=== PATIENT | male | born 1960 | race Caucasian/White ===

== ENCOUNTER 2025-02-03 17:17 | Inpatient (IN) | payer OTHER ==
[~2025-02-03] VITALS: Ht 162.6 cm; Wt 56.5 kg
[~2025-02-03 17:17] MED LIST: CITA20 PO; DEXAMETHASONE
[2025-02-03 18:15] LABS: BASOPHILS ABSOLUTE AUTO 0.06 K/mm3 (0.00-0.23); BASOPHILS PERCENT AUTO 0 % (0-2); EOSINOPHILS ABSOLUTE AUTO 0.01 K/mm3 (0.00-0.68); EOSINOPHILS PERCENT AUTO 0 % (0-6); Hematocrit 45.3 % (37.0-53.0); Hemoglobin 15.6 g/dL (13.5-17.5); IMMATURE GRAN ABSOLUTE AUTO 0.08 K/mm3 (0.00-0.10); IMMATURE GRAN PERCENT AUTO 0 % (0-1); LYMPHOCYTES ABSOLUTE AUTO 1.87 K/mm3 (0.84-5.20); LYMPHOCYTES PERCENT AUTO 9 % (21-46); MONOCYTES ABSOLUTE AUTO 1.29 K/mm3 (0.16-1.47); MONOCYTES PERCENT AUTO 6 % (4-13); Mean Corpuscular HGB 30.8 pg (26.0-34.0); Mean Corpuscular HGB Conc 34.4 g/dL (31.5-36.5); Mean Corpuscular Volume 89 fL (80-100); Mean Platelet Volume 8.9 fL (9.1-12.4); NEUTROPHILS ABSOLUTE AUTO 17.14 K/mm3 (1.96-9.15); NEUTROPHILS PERCENT AUTO 84 % (41-73); Platelet Count 447 K/mm3 (150-400); RDW Coefficient Variation 13.3 % (11.7-14.2); RDW Standard Deviation 43.8 fL (35.1-46.3); Red Blood Cell Count 5.07 M/mm3 (4.30-5.90); White Blood Cell Count 20.45 K/mm3 (4.00-11.30)
[2025-02-03 18:26] LABS: Albumin, Blood 2.8 g/dL (3.4-5.0); Albumin/Globulin Ratio 0.6 (0.8-1.8); Bilirubin, Total 0.7 mg/dL (0.1-1.0); Bun/Creatinine Ratio 19.8 (12.0-20.0); Calcium, Blood 8.7 mg/dL (8.5-10.1); Creatinine, Blood 0.96 mg/dL (0.60-1.20); Globulin, Blood 4.4 g/dL (2.2-4.0); Total Protein, Blood 7.2 g/dL (6.4-8.2)
[2025-02-03] MEDS ORDERED: CefTRIAXone Sodium 1,000 MG in NS 100 ML IV ONE (20:50)
[2025-02-03] MEDS ORDERED: Azithromycin 250 MG Tab PO ONE (20:50)
[2025-02-03] MEDS ORDERED: NS 1,000 ML IV SCH (21:25)
[2025-02-03] MEDS ORDERED: Ondansetron HCl 2 MG / ML 2ML Vial IV PRN (21:25)
[2025-02-03] MEDS ORDERED: FLU VACC TS2024-25(6MOS UP)/PF 45 MCG/0.5 ML SYRINGE IM ONE (21:25)
[2025-02-03] MEDS ORDERED: EZET10 PO (21:44)
[2025-02-03] MEDS ORDERED: LISI5 PO (21:45)
[2025-02-03] MEDS ORDERED: NS 1,000 ML IV ONE (22:00)
[2025-02-03 23:49] VITALS: BP 122/92
[2025-02-04 01:50] LABS: Streptococcus pneumoniae DNA Detected Bin 10^6 copy/mL (NOT DETECT)
[2025-02-04 01:51] LABS: Acinetobacter baumannii DNA Not Detected copy/mL (NOT DETECT); Adenovirus DNA Not Detected (NOT DETECT); Chlamydia pneumonia Not Detected (NOT DETECT); Enterobacter cloacae DNA Not Detected copy/mL (NOT DETECT); Escherichia coli DNA Not Detected copy/mL (NOT DETECT); Haemophilus influenzae DNA Not Detected copy/mL (NOT DETECT); Human Coronavirus RNA Not Detected (NOT DETECT); Human Metapneumovirus RNA Not Detected (NOT DETECT); Influenza virus A RNA Detected (NOT DETECT); Influenza virus B RNA Not Detected (NOT DETECT); Klebsiella aerogenes DNA Not Detected copy/mL (NOT DETECT); Klebsiella oxytoca DNA Not Detected copy/mL (NOT DETECT); Klebsiella pneumoniae DNA Not Detected copy/mL (NOT DETECT); Legionella pneumophila Not Detected (NOT DETECT); Moraxella catarrhalis DNA Not Detected copy/mL (NOT DETECT); Mycoplasma pneumoniae Not Detected (NOT DETECT); Parainfluenza virus RNA Not Detected (NOT DETECT); Proteus sp DNA Not Detected copy/mL (NOT DETECT); Pseudomonas aeruginosa DNA Not Detected copy/mL (NOT DETECT); Respiratory syncytial Vir RNA Not Detected (NOT DETECT); Rhinovirus+Enterovirus RNA Not Detected (NOT DETECT); Serratia marcescens DNA Not Detected copy/mL (NOT DETECT); Staphylococcus aureus DNA Not Detected copy/mL (NOT DETECT); Streptococcus agalactiae DNA Not Detected copy/mL (NOT DETECT); Streptococcus pyogenes DNA Not Detected copy/mL (NOT DETECT)
[2025-02-04 05:26] VITALS: BP 112/77
[2025-02-04 06:09] LABS: BASOPHILS ABSOLUTE AUTO 0.05 K/mm3 (0.00-0.23); BASOPHILS PERCENT AUTO 0 % (0-2); EOSINOPHILS ABSOLUTE AUTO 0.04 K/mm3 (0.00-0.68); EOSINOPHILS PERCENT AUTO 0 % (0-6); Hematocrit 39.3 % (37.0-53.0); Hemoglobin 13.3 g/dL (13.5-17.5); IMMATURE GRAN ABSOLUTE AUTO 0.07 K/mm3 (0.00-0.10); IMMATURE GRAN PERCENT AUTO 1 % (0-1); LYMPHOCYTES ABSOLUTE AUTO 2.18 K/mm3 (0.84-5.20); LYMPHOCYTES PERCENT AUTO 15 % (21-46); MONOCYTES PERCENT AUTO 9 % (4-13); Mean Corpuscular HGB 30.4 pg (26.0-34.0); Mean Corpuscular HGB Conc 33.8 g/dL (31.5-36.5); Mean Corpuscular Volume 90 fL (80-100); Mean Platelet Volume 8.9 fL (9.1-12.4); NEUTROPHILS ABSOLUTE AUTO 10.97 K/mm3 (1.96-9.15); NEUTROPHILS PERCENT AUTO 75 % (41-73); Platelet Count 411 K/mm3 (150-400); RDW Coefficient Variation 13.2 % (11.7-14.2); RDW Standard Deviation 43.9 fL (35.1-46.3); Red Blood Cell Count 4.38 M/mm3 (4.30-5.90); White Blood Cell Count 14.61 K/mm3 (4.00-11.30)
--- NOTE | 2025-02-04 06:38 | NUR ---
SHIFT SUMMARY PT A&OX4 AND ANSWERS QUESTIONS APPROPRIATELY. PT ARRIVED ON UNIT AT 2345 VIA GURNEY AND AMBULATED INDEPENDENTLY YO THE BED. PT ORIENTED TO ROOM AND UNIT. PT RECEIVED BOLUS OF FLUID. PT VSS, NO COMPLAINTS OF CP/PRESSURE. PT ON 4L OF O2 TO MAINTAIN O2 SATS OVER 90%. FALL PRECAUTIONS IN PLACE AND CALL LIGHT IN REACH. REPOSITIONED INDEPENDENTLY
[2025-02-04 07:01] LABS: Bun/Creatinine Ratio 22.7 (12.0-20.0); Calcium, Blood 8.3 mg/dL (8.5-10.1); Creatinine, Blood 0.84 mg/dL (0.60-1.20); Potassium, Blood 4.1 mmol/L (3.5-5.5)
[2025-02-04 08:33] VITALS: BP 123/90
[2025-02-04] MEDS ORDERED: Enoxaparin 40 MG/0.4 ML SYR SC SCH (09:00)
[2025-02-04] MEDS ORDERED: Lactobacil 2-S.Thermo-Bifido 1 1 Cap PO SCH (09:00)
[2025-02-04] MEDS ORDERED: Oseltamivir Phosphate 75 MG Cap PO SCH (14:00)
[2025-02-04 15:41] VITALS: BP 155/91
--- NOTE | 2025-02-04 16:05 | NUR ---
PT IS AOX4 AND COOPERATIVE OF CARE. PT IS INDEPENDENT IN ROOM. PT HAS A COUGH, BUT HASN'T BEEN COUGH MUCH UP. PT CURRENTLY RESTING IN BED WILL CONTINUE TO MONITOR.
[2025-02-04 19:48] VITALS: BP 140/82
[2025-02-04] MEDS ORDERED: CefTRIAXone Sodium 1,000 MG in NS 100 ML IV SCH (21:00)
[2025-02-04] MEDS ORDERED: Azithromycin 500 MG in NS 250 ML IV SCH (21:00)
--- NOTE | 2025-02-05 03:39 | NUR ---
ANTIQUE COLLECTOR SUMMARY: PT A&O X4. MAKES NEEDS KNOWN. INDEPENDENT WITH CARES IN ROOM. SATS MAINTAINED ABOVE 90% ON 4L NC, RA AT BASELINE. NOTED OCCASIONAL PRODUCTIVE COUGH. NO ACUTE DISTRESS / EVENTS. RESTING IN BED, CALL LIGHT IN REACH. BED IN LOWEST POSITION. CARES ONGOING ORDERED.
[2025-02-05 03:50] VITALS: BP 122/81
[2025-02-05 06:32] LABS: Hematocrit 40.1 % (37.0-53.0); Hemoglobin 13.5 g/dL (13.5-17.5); Mean Corpuscular HGB 30.3 pg (26.0-34.0); Mean Corpuscular HGB Conc 33.7 g/dL (31.5-36.5); Mean Corpuscular Volume 90 fL (80-100); Mean Platelet Volume 8.9 fL (9.1-12.4); Platelet Count 404 K/mm3 (150-400); RDW Coefficient Variation 13.3 % (11.7-14.2); RDW Standard Deviation 43.8 fL (35.1-46.3); Red Blood Cell Count 4.46 M/mm3 (4.30-5.90); White Blood Cell Count 12.78 K/mm3 (4.00-11.30)
[2025-02-05 07:06] LABS: Calcium, Blood 8.4 mg/dL (8.5-10.1); Creatinine, Blood 0.74 mg/dL (0.60-1.20); Potassium, Blood 4.2 mmol/L (3.5-5.5)
[2025-02-05 07:50] VITALS: BP 124/84
[2025-02-05] MEDS ORDERED: GuaiFENesin 600 MG TabCR PO SCH (12:00)
[2025-02-05] MEDS ORDERED: Ipratropium/Albuterol SulF 2.5-0.5MG/3 ML Amp INH PRN (12:20)
[2025-02-05 15:40] VITALS: BP 151/93
[2025-02-05 19:15] VITALS: BP 129/84
--- NOTE | 2025-02-05 19:32 | NUR ---
SHIFT SUMMARY PATIENT SATING 90% ON 4 L NC THIS AM WITH CONSTANT COUGH, THICK SPUTUM DIFFICULT TO GET OUT. WHEEZES UPON COUGHING, DR ROMERO NOTIFIED, ORDER FOR MUCINEX NOW AND DAILY, MUCINEX GIVEN WITH GOOD RELIEF. HE STATES HE IS ABLE TO COUGH UP SPUTUM MUCH EASIER NOW. HE DENIES SOB, LUNGS CLEAR. PATIENT UP INDEPENDENT IN ROOM, NOW SATTING 93% ON 3LPM AT REST. BED IN LOW POSITION, CALL LIGHT IN REACH. HE IS ABLE TO MAKE NEEDS KNOWN.
[2025-02-06 03:11] VITALS: BP 127/89
--- NOTE | 2025-02-06 04:06 | NUR ---
SHIFT SUMMARY PATIENT HAD NO ACUTE CHANGES. ALERT, ORIENTED, AND INDEPENDENT. ON 3L O2 NC AND RA BASELINE. DENIES CHEST PAIN AND N/V. VSS/AFEBRILE. PIV INTACT. IV ABXS INFUSED. CALL LIGHT IN REACH. BED IN LOWEST POSITION . WILL CONTINUE TO MONITOR UNTIL DAY SHIFT NURSE ASSUMES CARE.
[2025-02-06 06:03] LABS: Hematocrit 41.2 % (37.0-53.0); Hemoglobin 13.8 g/dL (13.5-17.5); Mean Corpuscular HGB 30.2 pg (26.0-34.0); Mean Corpuscular HGB Conc 33.5 g/dL (31.5-36.5); Mean Corpuscular Volume 90 fL (80-100); Mean Platelet Volume 8.8 fL (9.1-12.4); Platelet Count 411 K/mm3 (150-400); RDW Coefficient Variation 13.3 % (11.7-14.2); RDW Standard Deviation 44.6 fL (35.1-46.3); Red Blood Cell Count 4.57 M/mm3 (4.30-5.90); White Blood Cell Count 10.94 K/mm3 (4.00-11.30)
[2025-02-06 06:21] LABS: Bun/Creatinine Ratio 15.2 (12.0-20.0); Calcium, Blood 8.7 mg/dL (8.5-10.1); Creatinine, Blood 0.79 mg/dL (0.60-1.20); Potassium, Blood 4.2 mmol/L (3.5-5.5)
[2025-02-06 07:58] VITALS: BP 134/95
[2025-02-06] MEDS ORDERED: Benzonatate 100 MG Cap PO STA (10:59)
[2025-02-06] MEDS ORDERED: Benzonatate 100 MG Cap PO PRN (11:00)
[2025-02-06] MEDS ORDERED: Acetaminophen 325 MG TABLET PO PRN (11:05)
[2025-02-06 16:30] VITALS: BP 146/98
--- NOTE | 2025-02-06 16:52 | NUR ---
SHIFT SUMMARY PATIENT UP AD VADIM IN ROOM WITH 3LPM O2 NC. ATTEMPTS TO DROP O2 TO 2LPM AND PATIENT DESATS TO 84-89%, INCREASE TO 3LPM BRINGS HIM TO 90-92%. HE DENIES SHORTNESS OF BREATH AND STATES HE HAS BEEN COUGHING LESS TODAY BUT ABLE TO GET UP SOME SPUTUM TODAY. HE C/O DRYNESS IN NOSTRILS AND HUMIDIFIED O2 WAS SET UP FOR PATIENT. APPETTITE GOOD. BED IN LOW POSITION, CALL LIGHT IN REACH. HE IS ABLE TO MAKE NEEDS KNOWN.
[2025-02-06 20:07] VITALS: BP 147/97
[2025-02-07 05:00] VITALS: BP 138/96
[2025-02-07] MEDS ORDERED: Albuterol 2.5 MG/3 ML VIAL ONE (05:15)
--- NOTE | 2025-02-07 05:58 | NUR ---
SHIFT SUMMARY PT HAS BEEN RESTING IN BED COMFORTABLY OVERNIGHT. PT HAS BEEN AOX4, CALM AND COOPERATIVE. PT WAS ON 3LNC, WITH 4LNC WHEN PT WAS UP TO BATHROOM. PT SATURATING AT REST ABOVE 90%. AT 0530, PT CAME BACK FROM RESTROOM, AND HAD EXPRESSED SOME DIFFICULTY BREATHING. PT WAS GIVEN BREATHING TX, AND RESPIRATORY CARE TURNED O2 TO 7LNC. CURRENTLY PT ON 6LNC, SATURATING AT 93-98%. PT NO LONGER HAVING DIFFICULTY BREATHING. PT HAS BEEN INDEPENDENT AMBULATING IN ROOM, BUT HAS DYSPNEA ON EXERTION. PT HAS HAD NO COMPLAINTS OVERNIGHT. OTHERWISE, PT HAD UNEVENTFUL EVENING.
[2025-02-07 07:12] VITALS: BP 147/97
--- NOTE | 2025-02-07 08:40 | NUR ---
PT ON 4L NC AT THE BEGINNING OF THIS SHIFT, SATS MAINTAINING >92% ON CONT PULSE OX. PT UP TO OPEN BLINDS AND BACK TO BED, O2 DROPPING IN THE LOW 80'S. 02 TITRATED UP TO 10L IN ORDER TO MAINTAIN SATS >90%. DR ROMERO NOTIFIED.
[2025-02-07 10:20] LABS: PCO2 Arterial 44.7 mmHg (35-45); pH Blood Arterial 7.43 (7.35-7.45)
--- NOTE | 2025-02-07 11:30 | NUR ---
PT ON 10L NC, SATS MAINTAINING 100% ON CONT PULSE OX. O2 TITRATED DOWN. PT IS CURRENTLY ON 3L NC, SATS 94-95%, DROPPING THE HIGH 80'S WITH AMBULATION. DR ROMERO NOTIFIED.
[2025-02-07 15:45] VITALS: BP 133/91
--- NOTE | 2025-02-07 17:20 | NUR ---
SHIFT SUMMARY PT IS A/OX4, INDEPENDENT IN THE ROOM. PT ON 4L NC AT THE BEGINNING OF THIS SHIFT. AFTER AMBULATING TO THE WINDOW AND BACK TO THE BED O2 SATS DROPPED TO THE LOW 80'S. O2 TITRATED TO 10L IN ORDER TO MAINTAIN SATS >90%. LATER THIS AFTERNOON, 02 TITRATED DOWN TO 3L. PT IS CURRENTLY ON 3L, SATS 90-95% ON CONT PULSE OX. SEE PREVIOUS NOTES. FAMILY AT BEDSIDE THIS AFTERNOON. CONTINUING ANTIBIOTIC THERAPY AND TAMIFLU.
[2025-02-07 19:21] VITALS: BP 139/85
--- NOTE | 2025-02-08 05:20 | NUR ---
No Acute changes over night, Patiet currently on 4L O2 NC. Patient continues on IVAXB. Will continue to monitoring until day shift resumes cares.
[2025-02-08 05:25] VITALS: BP 119/84
[2025-02-08 05:55] LABS: Hematocrit 42.3 % (37.0-53.0); Mean Corpuscular HGB 29.9 pg (26.0-34.0); Mean Corpuscular HGB Conc 33.1 g/dL (31.5-36.5); Mean Corpuscular Volume 90 fL (80-100); Mean Platelet Volume 8.9 fL (9.1-12.4); Platelet Count 409 K/mm3 (150-400); RDW Coefficient Variation 13.4 % (11.7-14.2); RDW Standard Deviation 44.1 fL (35.1-46.3); Red Blood Cell Count 4.68 M/mm3 (4.30-5.90)
[2025-02-08 06:12] LABS: Bun/Creatinine Ratio 15.9 (12.0-20.0); Calcium, Blood 8.9 mg/dL (8.5-10.1); Creatinine, Blood 0.88 mg/dL (0.60-1.20); Potassium, Blood 4.3 mmol/L (3.5-5.5)
[2025-02-08 07:29] VITALS: BP 136/99
[2025-02-08 15:36] VITALS: BP 121/86
[2025-02-08] MEDS ORDERED: Piperacillin/Tazobactam Sod 3.375 GM in NS 100 ML IV SCH (17:00)
[2025-02-08] MEDS ORDERED: NS 250 ML IV PRN (17:35)
[2025-02-08] MEDS ORDERED: Vancomycin HCL 1,250 MG in NS 250 ML IV SCH (18:00)
--- NOTE | 2025-02-08 19:12 | NUR ---
SHIFT SUMMARY PT IS A/OX4, INDEPENDENT IN THE ROOM. ON 3-4L NC THROUGHOUT THIS SHIFT. EVALUATED BY SPEECH THERAPY THIS AFTERNOON FOR CONCERNS OF PNUEMONIA RELATED TO ASPIRATION. PT REMAINS ON REGULAR DIET AND PILLS WHOLE WITH APPLESAUCE.
[2025-02-08 19:42] VITALS: BP 154/100
[2025-02-09 02:48] VITALS: BP 112/76
[2025-02-09] MEDS ORDERED: Vancomycin HCL 1,000 MG in NS 250 ML IV SCH (04:00)
--- NOTE | 2025-02-09 05:07 | NUR ---
No acute changes overnight. Patient remains on 4L O2. Patient continues IV AXB. Patient denies chest pain, SOB and N/V. Will continue to monitor until day shift resumes cares.
[2025-02-09 07:15] VITALS: BP 148/101
[2025-02-09] MEDS ORDERED: Pantoprazole Sodium 20 MG Tab PO SCH (09:00)
[2025-02-09] MEDS ORDERED: MethylPREDNISolone Sod Succ 125 MG Vial IV SCH (10:00)
[2025-02-09 15:53] VITALS: BP 150/99
--- NOTE | 2025-02-09 18:04 | NUR ---
PT QUITE PLEASANT TODAY. HE DID REQUEST PAIN MEDIATION FOR HEADACHE, ONLY WANTED ONE TYLENOL. FAMILY IN TO VISIT TODAY. NO NEW CONCERNS NOTED. DR CHANGED MEDICATIONS, ADDING SOLU-MEDROL TODAY. CONTINUES TO AMBULATE ABOUT ROOM INDEPENDANTLY . BED IN LOW POSITION, CALL LITE IN REACH, CALLS APPROP
[2025-02-09 19:14] VITALS: BP 136/77
[2025-02-10 03:30] VITALS: BP 139/93
[2025-02-10 04:29] LABS: Vancomycin, Trough 11.8 ug/mL (5.0-10.0)
--- NOTE | 2025-02-10 05:19 | NUR ---
No acute changes over night, Patient currently 4L NC O2. Patient denies chest pain, SOB, and N/V. Patient IND. Patient on IV AXB. Will contunie to monitor until day shift resumes cares.
[2025-02-10 07:24] VITALS: BP 139/98
--- NOTE | 2025-02-10 15:10 | NUR ---
PT PLEASANT AND TALKATIVE TODAY. NO C/O PAIN. ABX PER ORDERS. INDEPENDANT IN ROOM. STILL ON 3L O2. LUNGS LIGHTLY COARSE IN BASES. BALANCE CLEAR. BED IN LOW POSITION, CALL LITE IN REACH, CALLS APPROP
[2025-02-10 15:56] VITALS: BP 137/85
[2025-02-10 19:14] VITALS: BP 153/98
[2025-02-11 03:16] VITALS: BP 141/101
--- NOTE | 2025-02-11 04:41 | NUR ---
SHIFT SUMMARY: PT AOX4 IND IN THE ROOM. HAS BEEN SATTING 94-97 ON 2L, TOLERATING MEDICATIONS WELL. ABLE TO SLEEP MOST OF THE NIGHT WITHOUT ISSUES. CALLS APPROPRIATELY AND DENIES ANY SOB AND CP. ABLE TO MAKE NEEDS KNOWN. NO ACUTE EVENTS OVERNIGHT. PT IN BED SLEEPING, BED IN LOWEST POSITION, CALL LIGHT IN REACH. CONTINUING CARE.
[2025-02-11 07:18] VITALS: BP 136/92
[2025-02-11 15:01] VITALS: BP 150/99
--- NOTE | 2025-02-11 16:17 | NUR ---
SHIFT SUMMARY NO ACUTE CHANGES. A/Ox4, VITALS STABLE, PT REMAINS INDEPENDENT IN ROOM. PT CONTINUES ON 2 L/MIN VIA NC AND SATING 95% AT REST. PT DOES DROP BELOW 88% WITH AMBULATION ON RA. PRODUCTIVE COUGH CONTINUES. PT DENIES PAIN. GOOD APPETITE TODAY. BARRIUM SWALLOW COMPLETED - PT REMAINS ON REGULAR TEXTURE DIET WITH THIN LIQUIDS, TAKES MEDS WITH PUREE TEXTURE. PT CURRENTLY RESTING IN HOSPITAL BED WITH CALL LIGHT WITHIN REACH AND BED IN LOWEST POSITION - PT USES CALL LIGHT APPROPRIATELY. AT BEDSIDE.
[2025-02-11 19:59] VITALS: BP 143/99
[2025-02-12 02:12] VITALS: BP 104/79
[2025-02-12 03:00] VITALS: BP 133/89
[2025-02-12 05:59] LABS: Hematocrit 38.8 % (37.0-53.0); Hemoglobin 13.3 g/dL (13.5-17.5); Mean Corpuscular HGB Conc 34.3 g/dL (31.5-36.5); Mean Corpuscular Volume 90 fL (80-100); Mean Platelet Volume 8.9 fL (9.1-12.4); Platelet Count 345 K/mm3 (150-400); RDW Coefficient Variation 13.8 % (11.7-14.2); RDW Standard Deviation 44.8 fL (35.1-46.3); Red Blood Cell Count 4.29 M/mm3 (4.30-5.90); White Blood Cell Count 15.17 K/mm3 (4.00-11.30)
[2025-02-12 06:21] LABS: Bun/Creatinine Ratio 27.5 (12.0-20.0); Calcium, Blood 8.4 mg/dL (8.5-10.1); Creatinine, Blood 0.73 mg/dL (0.60-1.20); Potassium, Blood 4.3 mmol/L (3.5-5.5)
[2025-02-12 07:34] VITALS: BP 144/97
--- NOTE | 2025-02-12 10:28 | NUR ---
ASSUMED CARE OF PATIENT. AWAKE DURING SHIFT-CHANGE REPORT. CONTINUOUS BiOx IN PLACE. MAINTAINING SPO2 >92% ON 2LPM. RT TO BEDSIDE; DECREASED TO 1LPM REQUESTING TO TITRATE OFF IF POSSIBLE TODAY. NIGHT NURSE REPORTS HE DESATTED TO MID-80s ON ROOM AIR DURING THE NIGHT. DR. JENKINS TO BEDSIDE, LATER, AND NOTED PATIENT TO BE IN MID-80s AT 1LPM. INCREASED TO 4LPM. PT c WET COUGH. GIVEN ANTITUSSINS. PLAN TO STAY 1-[address] JENKINS.
[2025-02-12 16:15] VITALS: BP 153/97
--- NOTE | 2025-02-12 18:22 | NUR ---
END OF SHIFT SUMMARY: A&Ox4. PLEASANT AND COOPERATIVE WITH CARE. CALLS APPROPRIATELY AND IS ABLE TO ADVOCATE NEEDS EFFECTIVELY. INDEPENDENT IN ROOM. MEDS WHOLE c APPLESAUCE OR OTHER PUREE. CONTINENT x2. CONTINUOUS BiOx IN PLACE; MAINTAINING SPO2 >92% ON 1-4LPM/NC. LUNG SOUNDS DIMINISHED, THOUGH CLEAR. ANTICIPATE DC TOMORROW. ADDITION OF AUGMENTIN TO MEDICATION REGIMEN. BED IN LOWEST POSITION, CALL LIGHT WITHIN REACH, ALL NEEDS MET. REPORT TO ONCOMING NURSE.
[2025-02-12 19:48] VITALS: BP 149/93
[2025-02-12] MEDS ORDERED: Amoxicillin/Clavulanate K 875 MG Tab PO SCH (21:00)
[2025-02-13 05:19] VITALS: BP 127/95
--- NOTE | 2025-02-13 07:23 | NUR ---
CUSTOMER SUPPORT COORDINATOR SUMMARY PT STILL REQUIRING 1-3L O2. ON CONT BIOX ALL NIGHT. WILL NEED A HOME O2 EVAL BEFORE DISCHARGE
[2025-02-13 07:30] VITALS: BP 149/105
[2025-02-13] MEDS ORDERED: PredniSONE 20 MG Tab PO SCH (09:00)
[2025-02-13] MEDS ORDERED: AMOCLA875 PO (13:49)
[2025-02-13] MEDS ORDERED: Tessalon200 MG PO (13:50)
[2025-02-13] MEDS ORDERED: PRED20 PO (13:50)
[2025-02-13] MEDS ORDERED: VISBIOME 112.51 EACH PO (13:50)
[2025-02-13] MEDS ORDERED: GUAI600T33 PO (13:50)
[2025-02-13] MEDS ORDERED: PANT20 PO (13:51)
--- NOTE | 2025-02-13 16:20 | NUR ---
DISCHARGE: PT D/C @1545 VIA WHEELCHAIR WITH . MEDICATIONS FAXED TO [facility]. RX MEDICATIONS EXPLAINED TO PT. IV REMOVED BY ZANE NAYAK WITHOUT COMPLICATIONS. PORTABLE OXYGEN DELIVERED BY FARZANA FARRELL. PT AWARE TO MAKE FOLLOW-UP APPOINTMENT WITH NEW PCP AND FOLLOW-UP WITH GI FOR EGD. NO QUESTIONS AT TIME OF D/C.
== END 2025-02-13 15:45 | disposition home health service (06) | DRG 871 ==
LOC: ER 17:17 → MEDS 21:19
PROVIDERS: Internal Medicine; Nurse Practitioner Acute Care; Physician Assistant; ADMIT Internal Medicine
PROC: 3E03329 Introduction of Other Anti-infective into Peripheral Vein, Percutaneous Approach (ICD-10-PCS; principal; 2025-02-03)
PROC: 4A033R1 Measurement of Arterial Saturation, Peripheral, Percutaneous Approach (ICD-10-PCS; 2025-02-07)
PROC: BD1BYZZ Fluoroscopy of Mouth/Oropharynx using Other Contrast (ICD-10-PCS; 2025-02-11)
DX: A40.3 Sepsis due to Streptococcus pneumoniae (principal); J10.08 Influenza due to other identified influenza virus with other specified pneumonia; J96.01 Acute respiratory failure with hypoxia; R65.20 Severe sepsis without septic shock; J13 Pneumonia due to Streptococcus pneumoniae; Z94.81 Bone marrow transplant status; E87.1 Hypo-osmolality and hyponatremia; I10 Essential (primary) hypertension; E78.5 Hyperlipidemia, unspecified; E86.1 Hypovolemia; K20.90 Esophagitis, unspecified without bleeding; Z85.6 Personal history of leukemia; Z98.52 Vasectomy status; Z92.21 Personal history of antineoplastic chemotherapy; Z28.21 Immunization not carried out because of patient refusal
CPT/HCPCS: 0528U; 36415; 36600; 71046; 71260; 74230; 80048; 80053; 80202; 82565; 82803; 83605; 84484; 85025; 85027; 87040; 87070; 87077; 87184; 87186; 87205; 92526; 92610; 92611; 93005; 93010; 94640; 94664; 94761; 94762; 96365; 99285-25; A9270; J0456; J0696; J1650; J2470; J2543; J2919; J3370; J7030; J7050; J7512; Q9967

== ENCOUNTER 2025-08-20 10:02 | Day surgery (SDC) | payer OTHER ==
[~2025-08-20] VITALS: Ht 177.8 cm; Wt 59.9 kg
[~2025-08-20 10:02] MED LIST changes: +AMOCLA875 PO; +EZET10 PO; +GUAI600T33 PO; +LISI5 PO; +PANT20 PO; +PRED20 PO; +Tessalon200 MG PO; +VISBIOME 112.51 EACH PO
[2025-08-20] MEDS ORDERED: OMEP20ER (10:36)
[2025-08-20 12:07] VITALS: BP 113/86
== END 2025-08-20 12:30 | disposition home or self-care (01) ==
LOC: ORSCSDS 10:02
PROVIDERS: Specialist
PROC: 0DB58ZX Excision of Esophagus, Via Natural or Artificial Opening Endoscopic, Diagnostic (ICD-10-PCS; principal; 2025-08-20 11:15)
PROC: 0DBP8ZX Excision of Rectum, Via Natural or Artificial Opening Endoscopic, Diagnostic (ICD-10-PCS; principal; 2025-08-20 11:15)
DX: R13.10 Dysphagia, unspecified (principal); C15.9 Malignant neoplasm of esophagus, unspecified; K44.9 Diaphragmatic hernia without obstruction or gangrene; K21.9 Gastro-esophageal reflux disease without esophagitis; D12.8 Benign neoplasm of rectum; K64.8 Other hemorrhoids; K57.30 Diverticulosis of large intestine without perforation or abscess without bleeding; K62.5 Hemorrhage of anus and rectum; R93.3 Abnormal findings on diagnostic imaging of other parts of digestive tract; Z79.899 Other long term (current) drug therapy
CPT/HCPCS: 88305; J2704; J7120